=== PATIENT | female | born 1970 | race Caucasian/White ===

== ENCOUNTER 2019-03-09 08:16 | Inpatient (IN) | payer OTHER ==
[2019-03-09 08:42] VITALS: BMI 26.5
--- NOTE | 2019-03-09 09:30 | HP ---
COWS - Scale Resting Pulse: 1= [place] 81-100 Sweatin= Chills/Flushing Restless Observation: 1= Difficult to Sit Still Pupil Size: 0= Normal to Room Light Bone or Joint Aches: 1= Mild Discomfort Runny Nose/ Eye Tearin= Runny Nose/Eyes GI Upset > 30mins: 2= Nausea/Diarrhea Tremor Observation: 2= Slight Tremor Visible Yawning Observation: 1= 1-2x During Session Anxiety or Irritability: 2=Irritable/Anxious Goose Flesh Skin: 0=Smooth Skin COWS Score: 13 Admission ROS S - HPI Chief Complaint: I want to detox, I want to change my life. Allergies/Adverse Reactions: Allergies Allergy/AdvReac Type Severity Reaction Status Date / Time codeine Allergy Severe Hives Verified 03/09/19 08:28 History of Present Illness: 48 yo woman here for detox from opiates. Patient reports black outs but no overdose. States she just started using opiates when she met a man who was using a few years ago - he later overdosed. She has been in detox, methadone program at [facility] (80mg, from 2015-Oct 2018). She got off the methadone because she did not like going every day. She relapsed shortly after getting off methadone. Was in detox in [place] a few months ago. She does not drink alcohol. She is interested in [employer]. Noted urine tox + alprazolam (just took once) and methadone (just took once to help her withdrawal symptoms) and cocaine (just took once) - she states these are not done regularly. Exam Limitations: Clinical Condition - Ebola screening Have you traveled outside of the country in the last 21 days: No (N) Have you had contact with anyone from an Ebola affected area: No Do you have a fever: No - Review of Systems Constitutional: Loss of Appetite, Night Sweats, Changes in sleep EENT: reports: Nose Congestion Respiratory: reports: No Symptoms reported Cardiac: reports: No Symptoms Reported GI: reports: Nausea, Poor Appetite, Abdominal cramping : reports: Dysuria Musculoskeletal: reports: Back Pain, Muscle Pain Integumentary: reports: No Symptoms Reported Neuro: reports: Headache, Tremors Endocrine: reports: No Symptoms Reported Hematology: reports: No Symptoms Reported Psychiatric: reports: Mood/Affect Appropiate, Anxious Other Systems: Reviewed and Negative Patient History - Patient Medical History Hx Anemia: No Hx Asthma: No Hx Chronic Obstructive Pulmonary Disease (COPD): No Hx Cancer: No Hx Cardiac Disorders: No Hx Hypertension: Yes Hx Hypercholesterolemia: No Hx Pacemaker: No Hx Seizures: No Hx Diabetes: No Hx Gastrointestinal Disorders: Yes (constipation - ) Hx Liver Disease: No Hx Genitourinary Disorders: No Hx Sexually Transmitted Disorders: No Hx Renal Disease (ESRD): No Hx Thyroid Disease: Yes (hypothyroid) Hx Human Immunodeficiency Virus (HIV): No Hx Hepatitis C: No Hx Depression: Yes (hospitalized January 2018, on meds) Hx Suicide Attempt: No Hx Bipolar Disorder: Yes Hx Schizophrenia: No - Patient Surgical History Past Surgical History: No - PPD History Previous Implant?: Yes Documented Results: Negative w/proof (done in [facility]) Implanted On Prior R Admission?: No PPD to be Administered?: Yes - Reproductive History Patient is a Female of Child Bearing Age (11 -55 yrs old): Yes - Smoking Cessation Smoking history: Former smoker Have you smoked in the past 12 months: No Aproximately how many cigarettes per day: 0 Initiated information on smoking cessation: No - Substance & Tx. History Hx Alcohol Use: No Hx Substance Use: Yes Substance Use Type: Cocaine, Heroin, Opiates Hx Substance Use Treatment: Yes (detox, MMTP, 12 step meetings) - Substances abused Heroin Substance route: Inhalation Frequency: Daily Amount used: 4 bags Age of first use: 46 Date of last use: 03/08/19 Non-Rx Methadone Substance route: Oral Frequency: 1-3 times last 30 days Amount used: 5mg Age of first use: 48 Date of last use: 03/06/19 Alprazolam (Xanax) Substance route: Oral Frequency: 1-3 times last 30 days Amount used: 1mg Age of first use: 48 Date of last use: 03/06/19 Cocaine Substance route: Inhalation Frequency: 1-3 times last 30 days Amount used: $10 Age of first use: 20 Date of last use: 03/06/19 Family Disease History - Family Disease History Family Disease History: CA: Mother (living - colon cancer), Other: Father ( , cirrhosis,hx etoh), Mother, Brother (one living - no contact), Sister (three living - healthy), Daughter (one age 29 - in [place], healthy) Admission Physical Exam [facility] - Vital Signs Vital Signs: Vital Signs - 24 hr 03/09/19 08:33 Temperature 98.0 F Pulse Rate 81 Respiratory 20 Rate Blood Pressure 110/75 - Physical General Appearance: Yes: Nourished, Appropriately Dressed, Moderate Distress, Anxious HEENTM: Yes: EOMI, Hearing grossly Normal, Normocephalic, Normal Voice, Pharynx Normal, Nasal Congestion Respiratory: Yes: Normal Breath Sounds, No Respiratory Distress Neck: Yes: No masses,lesions,Nodules Breast: Yes: Breast Exam Deferred Cardiology: Yes: Regular Rhythm, Regular Rate Abdominal: Yes: Soft Genitourinary: Yes: Hesitency, Dysuria Back: Yes: Normal Inspection Musculoskeletal: Yes: full range of Motion, Gait Steady, Back pain, Muscle Pain Extremities: Yes: Normal Inspection, Normal Range of Motion Neurological: Yes: Fully Oriented, Alert, Motor Strength 5/5, Normal Mood/Affect , Normal Response Integumentary: Yes: Normal Color, Warm Lymphatic: Yes: Within Normal Limits - Diagnostic (1) Opioid dependence with withdrawal Current Visit: Yes Status: Chronic (2) HTN (hypertension) Current Visit: Yes Status: Chronic Qualifiers: Hypertension type: essential hypertension Qualified Code(s): I10 - Essential (primary) hypertension (3) Hypothyroid Current Visit: Yes Status: Chronic Qualifiers: Hypothyroidism type: acquired Qualified Code(s): E03.9 - Hypothyroidism, unspecified Cleared for Admission [facility] - Detox or Rehab [facility] Level of Care: Medically Managed Detox Regimen/Protocol: Methadone Breathalyzer - Breathalyzer Breathalyzer: 0 Urine Drug Screen - Test Device Lot number: [id number] Expiration date: 01/01/21 - Control Is test valid?: Yes - Results Drug screen NEGATIVE: No Urine drug screen results: JAZMIN-Cocaine, FEN-Fentanyl, MOP-Opiates, OXY-Oxycodone , MTD-Methadone, BZO-Benzodiazepines Inpatient Rehab Admission - Rehab Decision to Admit Inpatient rehab admission?: No
[2019-03-09] MEDS ORDERED: MAG HYDROX/AL HYDROX/SIMETH 30 ML UNIT-DOSE CUP PO PRN (09:47)
[2019-03-09] MEDS ORDERED: BISMUTH SUBSALICYLATE 524 MG/30 ML UD PO PRN (09:47)
[2019-03-09] MEDS ORDERED: MENTHOL/PHENOL 1 EACH UD MM PRN (09:47)
[2019-03-09] MEDS ORDERED: cloNIDine HCL 0.1 MG TABLET PO PRN (09:47)
[2019-03-09] MEDS ORDERED: ACETAMINOPHEN 325 MG TABLET (FP) PO PRN (09:47)
[2019-03-09] MEDS ORDERED: IBUPROFEN 400 MG TABLET (FP) PO PRN (09:47)
[2019-03-09] MEDS ORDERED: MAGNESIUM HYDROX 2400MG/30ML ORAL SUSPENSION 30 ML CUP PO PRN (09:47)
[2019-03-09] MEDS ORDERED: MAGNESIUM CITRATE 300 ML BOTTLE PO PRN (09:47)
[2019-03-09] MEDS ORDERED: METHADONE HCL 10 MG TABLET (FOR DETOX USE ONLY) PO ONE (11:00)
[2019-03-09] MEDS: ESCITALOPRAM OXALATE 20 MG TABLET (FP) PO SCH (11:36)
[2019-03-09] MEDS: amLODIPine BESYLATE 5 MG TABLET (FP) PO SCH (11:36)
[2019-03-09] MEDS: LEVOTHYROXINE NA 25 MCG TABLET (FP) PO SCH (11:37)
[2019-03-09] MEDS: PRENATAL VITAMINS W/ FOLIC ACID TABLET (FP) PO SCH (11:37)
[2019-03-09 12:39] LABS: HEMATOCRIT 35.6 % (32.4-45.2); HEMOGLOBIN 11.5 GM/dL (10.7-15.3); MCH 27.1 pg (25.7-33.7); MCHC 32.3 g/dl (32.0-36.0); MEAN CELL VOLUME 83.9 fl (80-96); MEAN PLT VOLUME 9.2 fl (7.5-11.1); RBC 4.24 M/mm3 (3.60-5.2); RDW 18.3 % (11.6-15.6); WHITE BLOOD COUNT 5.3 K/mm3 (4.0-10.0)
[2019-03-09] MEDS: guaiFENesin 200 MG/10 ML 10 ML UNIT-DOSE CUPS PO PRN (12:52)
[2019-03-09 12:53] LABS: ALBUMIN 3.6 g/dl (3.4-5.0); BILIRUBIN,TOTAL 0.2 mg/dL (0.2-1); BLOOD UREA NITROGEN 11.4 mg/dL (7-18); CALCIUM 8.4 mg/dL (8.5-10.1); CREATININE 0.8 mg/dL (0.55-1.3); POTASSIUM 3.4 mmol/L (3.5-5.1)
[2019-03-09 12:56] LABS: PLATELET COUNT 255 K/MM3 (134-434)
[2019-03-09] MEDS: THIAMINE HCL 100 MG TABLET (FP) PO SCH (22:34)
[2019-03-09] MEDS: traZODone HCL 100 MG TABLET (FP) PO PRN (22:34)
[2019-03-10] MEDS ORDERED: METHADONE HCL 10 MG TABLET (FOR DETOX USE ONLY) ONE (09:35)
[2019-03-10] MEDS ORDERED: METHADONE HCL 5 MG TABLET (FOR DETOX USE ONLY) ONE (09:36)
[2019-03-10] MEDS ORDERED: METHADONE (DETOX) 20 MG, METHADONE (DETOX) 5 MG PO ONE (10:00)
[2019-03-10] MEDS: amLODIPine BESYLATE 5 MG TABLET (FP) PO SCH (10:07)
[2019-03-10] MEDS: ESCITALOPRAM OXALATE 20 MG TABLET (FP) PO SCH (10:07)
[2019-03-10] MEDS: PRENATAL VITAMINS W/ FOLIC ACID TABLET (FP) PO SCH (10:07)
[2019-03-10] MEDS: LEVOTHYROXINE NA 25 MCG TABLET (FP) PO SCH (10:08)
[2019-03-10] MEDS: guaiFENesin 200 MG/10 ML 10 ML UNIT-DOSE CUPS PO PRN (10:09)
--- NOTE | 2019-03-10 11:20 | CONSULT ---
[facility] Psychiatric Consult - Data Date of interview: 03/10/19 Admission source: [facility] Identifying data: Patient is a 48 year old single female, mother of one, domiciled, and currently employed. This is patient's first admission to detox at [facility]. Patient admitted to for opiate dependence. Substance Abuse History: Smoking Cessation. Smoking history: Former smoker. Have you smoked in the past 12 months: No. Aproximately how many cigarettes per day: 0. Initiated information on smoking cessation: No. - Substance & Tx. History. Hx Alcohol Use: No. Hx Substance Use: Yes. Substance Use Type: Cocaine, Heroin, Opiates. Hx Substance Use Treatment: Yes (detox, MMTP, 12 step meetings). - Substances abused. Heroin. Substance route: Inhalation. Frequency: Daily. Amount used: 4 bags. Age of first use: 46. Date of last use: 03/08/19. Non-Rx Methadone. Substance route: Oral. Frequency: 1-3 times last 30 days. Amount used: 5mg. Age of first use: 48. Date of last use : 03/06/19. Alprazolam (Xanax). Substance route: Oral. Frequency: 1-3 times last 30 days. Amount used: 1mg. Age of first use: 48. Date of last use : 03/06/19. Cocaine. Substance route: Inhalation. Frequency: 1-3 times last 30 days. Amount used: $10. Age of first use: 20. Date of last use: 03/06 Medical History: hypothyroid Psychiatric History: Patient's first psychiatric contact was in 2018 at [facility]. She reports h/o depression secondary to issues within her family. Patient slighly irritable while speaking to typewriter aligner and may be minimizing psychiatric history. Reports being prescribed lexapro 20mg daily. She denies h/o psychiatric hospitalizations and suicide attempt. Physical/Sexual Abuse/Trauma History: denies. Mental Status Exam - Mental Status Exam Alert and Oriented to: Time, Place, Person Cognitive Function: Good Patient Appearance: Well Groomed Mood: Withdrawn, Irritable (slightly irritable) Affect: Mood Congruent Patient Behavior: Cooperative Speech Pattern: Clear Voice Loudness: Normal Thought Process: Goal Oriented Thought Disorder: Not Present Hallucinations: Denies Suicidal Ideation: Denies Homicidal Ideation: Denies Insight/Judgement: Poor Sleep: Fair Appetite: Fair Muscle strength/Tone: Normal Gait/Station: Normal Psychiatric Findings - Problem List ([place] 1, 2,3) (1) Cocaine dependence Status: Chronic Qualifiers: Substance use status: uncomplicated Qualified Code(s): F14.20 - Cocaine dependence, uncomplicated (2) Opioid dependence with withdrawal Status: Chronic (3) Substance induced mood disorder Status: Acute - Initial Treatment Plan Initial Treatment Plan: Psychoeducation provided. Detoxification in progress. Will continue lexapro 20mg + trazodone 100mg HS prn for insomnia. Benefits and side effects discussed. Verbal consent given.
[2019-03-10] MEDS: clonazePAM 0.5 MG TABLET PO PRN ×2 (11:23→18:33)
--- NOTE | 2019-03-10 14:00 | EKG ---
Test Reason : Blood Pressure : / mmHG Vent. Rate : 068 BPM Atrial Rate : 068 BPM P-R Int : 150 ms QRS Dur : 088 ms QT Int : 430 ms P-R-T Axes : 048 029 028 degrees QTc Int : 457 ms NORMAL SINUS RHYTHM NORMAL ECG WHEN COMPARED WITH ECG OF 23-DEC-2011 20:48, NONSPECIFIC T WAVE ABNORMALITY NO LONGER EVIDENT IN ANTERIOR LEADS Confirmed by MD ZEFERINO, SMITHA ([id number]) on 03/10/2019 2:00:11 PM Referred By: GALE MIMS Confirmed By:SMITHA MCGARRY MD
[2019-03-10] MEDS: guaiFENesin 600 MG TABLET.ER (FP) PO SCH ×2 (14:15→22:44)
--- NOTE | 2019-03-10 16:29 | PN ---
BHS COWS - Scale Resting Pulse: 0= [place] 80 or Below Sweatin= Chills/Flushing Restless Observation: 1= Difficult to Sit Still Pupil Size: 0= Normal to Room Light Bone or Joint Aches: 0= None Runny Nose/ Eye Tearin= None GI Upset > 30mins: 2= Nausea/Diarrhea Tremor Observation of Outstretched Hands: 2= Slight Tremor Visible Yawning Observation: 1= 1-2x During Session Anxiety or Irritability: 2=Irritable/Anxious Goose Flesh Skin: 3=Piloerection COWS Score: 12 BHS Progress Note (SOAP) Subjective: Chills, Nausea, Tremors, Anxious. Objective: PATIENT A & O X 3, OBSERVED AMBULATING ON UNIT UNASSISTED. IN NO ACUTE DISTRESS. 03/10/19 16:30 Vital Signs Temperature 98.1 F 03/10/19 13:22 Pulse Rate 64 03/10/19 13:22 Respiratory Rate 18 03/10/19 13:22 Blood Pressure 98/57 L 03/10/19 13:22 O2 Sat by Pulse Oximetry (%) Laboratory Tests 03/09/19 03/09/19 03/09/19 09:21 09:50 09:50 WBC 5.3 RBC 4.24 Hgb 11.5 Hct 35.6 MCV 83.9 MCH 27.1 MCHC 32.3 RDW 18.3 H Plt Count 255 MPV 9.2 Sodium 140 Potassium 3.4 L Chloride 106 Carbon Dioxide 31 Anion Gap 4 L BUN 11.4 Creatinine 0.8 Est GFR (CKD-EPI)AfAm 99.63 Est GFR (CKD-EPI)NonAf 85.96 Random Glucose 132 H Calcium 8.4 L Total Bilirubin 0.2 AST 19 ALT 26 Alkaline Phosphatase 110 Total Protein 7.0 Albumin 3.6 POC Urine HCG, Qual Negative RPR Titer 03/09/19 09:50 WBC RBC Hgb Hct MCV MCH MCHC RDW Plt Count MPV Sodium Potassium Chloride Carbon Dioxide Anion Gap BUN Creatinine Est GFR (CKD-EPI)AfAm Est GFR (CKD-EPI)NonAf Random Glucose Calcium Total Bilirubin AST ALT Alkaline Phosphatase Total Protein Albumin POC Urine HCG, Qual RPR Titer Nonreactive LABS NOTED. RESULT OF TB / QFT TEST PENDING. 03/10/19 16:32 Assessment: 03/10/19 16:32 WITHDRAWAL SYMPTOMS. HYPOKALEMIA. HYPERGLYCEMIA. Plan: CONTINUE DETOX. K-DUR, 20 MEQ PO BID FOR LOW ADMISSION K LEVEL. RE-CHECK K LEVEL ON 03/12/2019. BGM ACBK FOR ELEVATED ADMISSION RANDOM GLUCOSE LEVEL (NO HISTORY OF DM REPORTED BY PATIENT ON DETOX ADMISSION HISTORY AND PHYSICAL ASSESSMENT.
[2019-03-10] MEDS: POTASSIUM CHLORIDE TABS 20 MEQ TABLET.ER (FP) PO SCH (18:32)
[2019-03-10] MEDS: SODIUM CHLORIDE NASAL SPRAY 44 ML BOTTLE NS PRN (18:41)
[2019-03-10] MEDS: THIAMINE HCL 100 MG TABLET (FP) PO SCH (22:43)
[2019-03-11] MEDS ORDERED: METHADONE HCL 10 MG TABLET (FOR DETOX USE ONLY) PO ONE (10:00)
--- NOTE | 2019-03-11 10:03 | PN ---
BHS COWS - Scale Resting Pulse: 0= [place] 80 or Below Sweatin= Chills/Flushing Restless Observation: 1= Difficult to Sit Still Pupil Size: 0= Normal to Room Light Bone or Joint Aches: 2= Severe Diffuse Aches Runny Nose/ Eye Tearin= Nasal Congestion GI Upset > 30mins: 0= None Tremor Observation of Outstretched Hands: 1= Tremor [place], Not Seen Yawning Observation: 1= 1-2x During Session Anxiety or Irritability: 2=Irritable/Anxious Goose Flesh Skin: 0=Smooth Skin COWS Score: 9 BHS Progress Note (SOAP) Subjective: agitation anxiety sweats interrupted sleep body aches Objective: 03/11/19 10:03 Vital Signs Temperature 97.9 F 03/11/19 09:32 Pulse Rate 75 03/11/19 09:32 Respiratory Rate 18 03/11/19 09:32 Blood Pressure 105/76 03/11/19 09:32 O2 Sat by Pulse Oximetry (%) Laboratory Tests 03/09/19 03/09/19 03/09/19 09:21 09:50 09:50 WBC 5.3 RBC 4.24 Hgb 11.5 Hct 35.6 MCV 83.9 MCH 27.1 MCHC 32.3 RDW 18.3 H Plt Count 255 MPV 9.2 Sodium 140 Potassium 3.4 L Chloride 106 Carbon Dioxide 31 Anion Gap 4 L BUN 11.4 Creatinine 0.8 Est GFR (CKD-EPI)AfAm 99.63 Est GFR (CKD-EPI)NonAf 85.96 POC Glucometer Random Glucose 132 H Calcium 8.4 L Total Bilirubin 0.2 AST 19 ALT 26 Alkaline Phosphatase 110 Total Protein 7.0 Albumin 3.6 POC Urine HCG, Qual Negative RPR Titer 03/09/19 03/11/19 09:50 05:57 WBC RBC Hgb Hct MCV MCH MCHC RDW Plt Count MPV Sodium Potassium Chloride Carbon Dioxide Anion Gap BUN Creatinine Est GFR (CKD-EPI)AfAm Est GFR (CKD-EPI)NonAf POC Glucometer 109 Random Glucose Calcium Total Bilirubin AST ALT Alkaline Phosphatase Total Protein Albumin POC Urine HCG, Qual RPR Titer Nonreactive labs noted aaox3 ambulating no acute distress Assessment: 03/11/19 11:42 withdrawal sx Plan: continue detox increase fluids
[2019-03-11] MEDS: amLODIPine BESYLATE 5 MG TABLET (FP) PO SCH (10:07)
[2019-03-11] MEDS: LEVOTHYROXINE NA 25 MCG TABLET (FP) PO SCH (10:07)
[2019-03-11] MEDS: POTASSIUM CHLORIDE TABS 20 MEQ TABLET.ER (FP) PO SCH ×2 (10:07→17:38)
[2019-03-11] MEDS: ESCITALOPRAM OXALATE 20 MG TABLET (FP) PO SCH (10:07)
[2019-03-11] MEDS: PRENATAL VITAMINS W/ FOLIC ACID TABLET (FP) PO SCH (10:07)
[2019-03-11] MEDS: guaiFENesin 600 MG TABLET.ER (FP) PO SCH ×2 (10:07→21:57)
[2019-03-11] MEDS: clonazePAM 0.5 MG TABLET PO PRN ×3 (10:07→23:41)
[2019-03-11] MEDS: METHOCARBAMOL 500 MG TABLET PO PRN (10:07)
[2019-03-11] MEDS: SODIUM CHLORIDE NASAL SPRAY 44 ML BOTTLE NS PRN ×2 (17:38→22:01)
[2019-03-11] MEDS: THIAMINE HCL 100 MG TABLET (FP) PO SCH (21:58)
[2019-03-11] MEDS: traZODone HCL 100 MG TABLET (FP) PO PRN (21:59)
[2019-03-12] MEDS: clonazePAM 0.5 MG TABLET PO PRN ×3 (06:15→19:18)
[2019-03-12] MEDS: SODIUM CHLORIDE NASAL SPRAY 44 ML BOTTLE NS PRN ×2 (06:17→18:06)
[2019-03-12] MEDS ORDERED: METHADONE HCL 10 MG TABLET (FOR DETOX USE ONLY) ONE (09:14)
[2019-03-12] MEDS ORDERED: METHADONE HCL 5 MG TABLET (FOR DETOX USE ONLY) ONE (09:14)
[2019-03-12] MEDS ORDERED: METHADONE (DETOX) 10 MG, METHADONE (DETOX) 5 MG PO ONE (10:00)
[2019-03-12] MEDS: PRENATAL VITAMINS W/ FOLIC ACID TABLET (FP) PO SCH (10:21)
[2019-03-12] MEDS: ESCITALOPRAM OXALATE 20 MG TABLET (FP) PO SCH (10:21)
[2019-03-12] MEDS: LEVOTHYROXINE NA 25 MCG TABLET (FP) PO SCH (10:21)
[2019-03-12] MEDS: guaiFENesin 600 MG TABLET.ER (FP) PO SCH ×2 (10:21→22:08)
[2019-03-12] MEDS: amLODIPine BESYLATE 5 MG TABLET (FP) PO SCH (10:21)
[2019-03-12] MEDS: POTASSIUM CHLORIDE TABS 20 MEQ TABLET.ER (FP) PO SCH ×2 (10:21→18:01)
--- NOTE | 2019-03-12 10:41 | PN ---
BHS COWS - Scale Resting Pulse: 0= [place] 80 or Below Sweatin= Chills/Flushing Restless Observation: 0= Sits Still Pupil Size: 0= Normal to Room Light Bone or Joint Aches: 1= Mild Discomfort Runny Nose/ Eye Tearin= None GI Upset > 30mins: 0= None Tremor Observation of Outstretched Hands: 1= Tremor [place], Not Seen Yawning Observation: 1= 1-2x During Session Anxiety or Irritability: 2=Irritable/Anxious Goose Flesh Skin: 0=Smooth Skin COWS Score: 6 BHS Progress Note (SOAP) Subjective: irritable agitation sweats Objective: 03/12/19 10:40 Vital Signs Temperature 98.3 F 03/12/19 09:40 Pulse Rate 69 03/12/19 09:40 Respiratory Rate 18 03/12/19 09:40 Blood Pressure 99/67 03/12/19 09:40 O2 Sat by Pulse Oximetry (%) Laboratory Tests 03/09/19 03/09/19 03/09/19 09:21 09:50 09:50 WBC 5.3 RBC 4.24 Hgb 11.5 Hct 35.6 MCV 83.9 MCH 27.1 MCHC 32.3 RDW 18.3 H Plt Count 255 MPV 9.2 Sodium 140 Potassium 3.4 L Chloride 106 Carbon Dioxide 31 Anion Gap 4 L BUN 11.4 Creatinine 0.8 Est GFR (CKD-EPI)AfAm 99.63 Est GFR (CKD-EPI)NonAf 85.96 POC Glucometer Random Glucose 132 H Calcium 8.4 L Total Bilirubin 0.2 AST 19 ALT 26 Alkaline Phosphatase 110 Total Protein 7.0 Albumin 3.6 POC Urine HCG, Qual Negative RPR Titer 03/09/19 03/11/19 03/12/19 09:50 05:57 06:12 WBC RBC Hgb Hct MCV MCH MCHC RDW Plt Count MPV Sodium Potassium Chloride Carbon Dioxide Anion Gap BUN Creatinine Est GFR (CKD-EPI)AfAm Est GFR (CKD-EPI)NonAf POC Glucometer 109 88 Random Glucose Calcium Total Bilirubin AST ALT Alkaline Phosphatase Total Protein Albumin POC Urine HCG, Qual RPR Titer Nonreactive repeated potassium pending aaox3 ambulating no acute distress Assessment: 03/12/19 10:40 withdrawal sx Plan: continue detox increase fluids
[2019-03-12] MEDS: THIAMINE HCL 100 MG TABLET (FP) PO SCH (22:08)
[2019-03-12] MEDS: MELATONIN 5 MG TABLETS PO PRN (22:08)
[2019-03-12] MEDS: traZODone HCL 100 MG TABLET (FP) PO PRN (22:10)
[2019-03-12] MEDS: METHOCARBAMOL 500 MG TABLET PO PRN (22:13)
[2019-03-13] MEDS: clonazePAM 0.5 MG TABLET PO PRN ×4 (05:24→23:25)
[2019-03-13] MEDS: SODIUM CHLORIDE NASAL SPRAY 44 ML BOTTLE NS PRN (05:25)
[2019-03-13] MEDS ORDERED: METHADONE HCL 10 MG TABLET (FOR DETOX USE ONLY) PO ONE (10:00)
[2019-03-13] MEDS: guaiFENesin 600 MG TABLET.ER (FP) PO SCH ×2 (10:27→22:13)
[2019-03-13] MEDS: POTASSIUM CHLORIDE TABS 20 MEQ TABLET.ER (FP) PO SCH ×2 (10:27→18:12)
[2019-03-13] MEDS: LEVOTHYROXINE NA 25 MCG TABLET (FP) PO SCH (10:27)
[2019-03-13] MEDS: ESCITALOPRAM OXALATE 20 MG TABLET (FP) PO SCH (10:27)
[2019-03-13] MEDS: PRENATAL VITAMINS W/ FOLIC ACID TABLET (FP) PO SCH (10:27)
[2019-03-13] MEDS: amLODIPine BESYLATE 5 MG TABLET (FP) PO SCH (10:29)
--- NOTE | 2019-03-13 12:03 | PN ---
BHS COWS - Scale Resting Pulse: 0= [place] 80 or Below Sweatin= Chills/Flushing Restless Observation: 1= Difficult to Sit Still Pupil Size: 0= Normal to Room Light Bone or Joint Aches: 1= Mild Discomfort Runny Nose/ Eye Tearin= None GI Upset > 30mins: 0= None Tremor Observation of Outstretched Hands: 1= Tremor [place], Not Seen Yawning Observation: 1= 1-2x During Session Anxiety or Irritability: 1=Feels Anxious/Irritable Goose Flesh Skin: 0=Smooth Skin COWS Score: 6 BHS Progress Note (SOAP) Subjective: sweats agitation Objective: 03/13/19 12:04 Vital Signs Temperature 96.9 F L 03/13/19 09:35 Pulse Rate 70 03/13/19 09:35 Respiratory Rate 18 03/13/19 09:35 Blood Pressure 101/51 L 03/13/19 09:35 O2 Sat by Pulse Oximetry (%) aaox3 ambulating no acute distress Assessment: 03/13/19 12:04 mild withdrawal sx Plan: continue detox increase fluids d/c in am
[2019-03-13] MEDS: THIAMINE HCL 100 MG TABLET (FP) PO SCH (22:13)
[2019-03-13] MEDS: MELATONIN 5 MG TABLETS PO PRN (22:14)
[2019-03-14] MEDS ORDERED: METHADONE HCL 5 MG TABLET (FOR DETOX USE ONLY) PO ONE (06:00)
[2019-03-14] MEDS: guaiFENesin 600 MG TABLET.ER (FP) PO SCH (09:22)
[2019-03-14] MEDS: POTASSIUM CHLORIDE TABS 20 MEQ TABLET.ER (FP) PO SCH (09:22)
[2019-03-14] MEDS: ESCITALOPRAM OXALATE 20 MG TABLET (FP) PO SCH (09:23)
[2019-03-14] MEDS: PRENATAL VITAMINS W/ FOLIC ACID TABLET (FP) PO SCH (09:23)
[2019-03-14] MEDS: amLODIPine BESYLATE 5 MG TABLET (FP) PO SCH (09:23)
[2019-03-14] MEDS: LEVOTHYROXINE NA 25 MCG TABLET (FP) PO SCH (09:24)
--- NOTE | 2019-03-14 09:36 | DS ---
[facility] Detox Discharge Summary Admission Date: 03/09/19 Discharge Date: 03/14/19 - History Present History: Cannabis Dependence, Opioid Dependence - Physical Exam Results Vital Signs: Vital Signs Temperature 97.5 F L 03/14/19 06:40 Pulse Rate 573 H 03/14/19 06:40 Respiratory Rate 18 03/14/19 06:40 Blood Pressure 98/60 03/14/19 06:40 O2 Sat by Pulse Oximetry (%) pt is aaox3 no distress, no s/s of withdrawal sx - Treatment Hospital Course: Detox Protocol Followed, Detoxed Safely, Responded well, Discharged Condition Good, Rehab Referral Accepted - Medication Discharge Medications: Ambulatory Orders Amlodipine Besylate [Norvasc -] 5 mg PO DAILY 03/09/19 Escitalopram Oxalate [Lexapro -] 20 mg PO DAILY 03/09/19 Levothyroxine [Synthroid -] 25 mcg PO ASDIR 03/09/19 - Diagnosis (1) Cocaine dependence Current Visit: Yes Status: Chronic Qualifiers: Substance use status: uncomplicated Qualified Code(s): F14.20 - Cocaine dependence, uncomplicated (2) Hyperglycemia Current Visit: Yes Status: Acute (3) Hypokalemia Current Visit: Yes Status: Acute (4) Opioid dependence with withdrawal Current Visit: Yes Status: Chronic (5) Substance induced mood disorder Current Visit: Yes Status: Acute (6) HTN (hypertension) Current Visit: Yes Status: Chronic Qualifiers: Hypertension type: essential hypertension Qualified Code(s): I10 - Essential (primary) hypertension (7) Hypothyroid Current Visit: Yes Status: Chronic Qualifiers: Hypothyroidism type: acquired Qualified Code(s): E03.9 - Hypothyroidism, unspecified - AMA Did Patient Leave Against Medical Advice: No (pt declined rehab;referred to positive direction OTP)
[2019-03-14 09:49] VITALS: BP 105/66; PULSE 63; TEMP 96.4
== END 2019-03-14 10:58 | disposition home or self-care (01) | DRG 773 ==
LOC: YASAS 08:16 → Y6N 10:16 → UNDODISIN 03-12 15:06
PROVIDERS: ADMIT Surgery; ATTEND Surgery
PROC: HZ2ZZZZ Detoxification Services for Substance Abuse Treatment (ICD-10-PCS; principal; 2019-03-09)
DX: F11.23 Opioid dependence with withdrawal (principal); F14.20 Cocaine dependence, uncomplicated; F31.9 Bipolar disorder, unspecified; F32.9 Major depressive disorder, single episode, unspecified; E87.6 Hypokalemia; I10 Essential (primary) hypertension; E03.9 Hypothyroidism, unspecified; Z87.891 Personal history of nicotine dependence
CPT/HCPCS: 36415; 80053; 81025; 82962; 84132; 85027; 86480; 86593; 93005; 93010

== ENCOUNTER 2019-04-26 14:04 | Inpatient (IN) | payer OTHER ==
[2019-04-26 16:25] VITALS: BMI 26.5
--- NOTE | 2019-04-26 18:17 | HP ---
COWS - Scale Resting Pulse: 2= [place] 101-120 Sweatin= Chills/Flushing Restless Observation: 1= Difficult to Sit Still Pupil Size: 1= Pupils >than Normal Bone or Joint Aches: 4=Acute Joint/Muscle Pain Runny Nose/ Eye Tearin= Runny Nose/Eyes GI Upset > 30mins: 3= Vomiting/Diarrhea Tremor Observation: 2= Slight Tremor Visible Yawning Observation: 1= 1-2x During Session Anxiety or Irritability: 2=Irritable/Anxious Goose Flesh Skin: 0=Smooth Skin COWS Score: 19 CIWA Score - Admission Criteria [facility]ASAS Guidelines: Admission for Medically Managed Detox: Requires at least one of the followin. CIWA greater than 12 2. Seizures within the past 24 hours 3. Delirium tremens within the past 24 hours 4. Hallucinations within the past 24 hours 5. Acute intervention needed for co occurring medical disorder 6. Acute intervention needed for co occurring psychiatric disorder 7. Severe withdrawal that cannot be handled at a lower level of care (continued vomiting, continued diarrhea, abnormal vital signs) requiring intravenous medication and/or fluids 8. Admission ROS [facility] Chief Complaint: Heroin withdrawal symptoms Allergies/Adverse Reactions: Allergies Allergy/AdvReac Type Severity Reaction Status Date / Time codeine Allergy Severe Hives Verified 04/15/19 19:46 shrimp Allergy Intermediate Hives Uncoded 04/15/19 19:47 History of Present Illness: 48 years old female with 5 years of heroin dependence is seeking [id number] to detox. Patient has been to previous detox and reports insignificant period of sobriety. She reports history of hypertension, hypothyroid, depression and anxiety. She denies suicidal ideation at this time Exam Limitations: No Limitations - Ebola screening Have you traveled outside of the country in the last 21 days: No (N) Have you had contact with anyone from an Ebola affected area: No Do you have a fever: No - Review of Systems Constitutional: Chills, Loss of Appetite, Night Sweats, Changes in sleep EENT: reports: Tearing, Nose Congestion Respiratory: reports: No Symptoms reported Cardiac: reports: No Symptoms Reported GI: reports: Nausea, Poor Appetite, Poor Fluid Intake, Vomiting, Abdominal cramping : reports: No Symptoms Reported Musculoskeletal: reports: Back Pain, Muscle Pain, Muscle Weakness Integumentary: reports: Dryness, Flushing Neuro: reports: Tremors Endocrine: reports: No Symptoms Reported Hematology: reports: No Symptoms Reported Psychiatric: reports: No Sypmtoms Reported, Anxious, Depressed Other Systems: Reviewed and Negative Patient History - Patient Medical History Hx Anemia: No Hx Asthma: No Hx Chronic Obstructive Pulmonary Disease (COPD): No Hx Cancer: No Hx Cardiac Disorders: No Hx Hypertension: Yes (Amlodipine) Hx Hypercholesterolemia: No Hx Pacemaker: No Hx Seizures: No Hx Diabetes: No Hx Gastrointestinal Disorders: No Hx Liver Disease: No Hx Genitourinary Disorders: No Hx Sexually Transmitted Disorders: No Hx Renal Disease (ESRD): No Hx Thyroid Disease: Yes (Hypothyroid - [id number]) Hx Human Immunodeficiency Virus (HIV): No Hx Hepatitis C: No Hx Depression: Yes Hx Suicide Attempt: No (suicidal ideation at this time) Hx Bipolar Disorder: Yes (Not on medication) Hx Schizophrenia: No Other Medical History: Anxiety - Lexapro - Patient Surgical History Past Surgical History: No - PPD History Previous Implant?: Yes Documented Results: Negative w/o proof PPD to be Administered?: Yes - Reproductive History Patient is a Female of Child Bearing Age (11 -55 yrs old): Yes Last Menstrual Period: 04/01/19 - Smoking Cessation Smoking history: Former smoker Have you smoked in the past 12 months: No Aproximately how many cigarettes per day: 0 Hx Chewing Tobacco Use: No Initiated information on smoking cessation: No - Substances abused Heroin Substance route: Inhalation Frequency: Daily Amount used: 4 bags Age of first use: 46 Date of last use: 04/24/19 Non-Rx Methadone Substance route: Oral Frequency: 1-3 times last 30 days Amount used: 5mg Age of first use: 48 Date of last use: 03/06/19 Alprazolam (Xanax) Substance route: Oral Frequency: 1-3 times last 30 days Amount used: 1mg Age of first use: 48 Date of last use: 04/22/19 Cocaine Substance route: Inhalation Frequency: 1-3 times last 30 days Amount used: $10 Age of first use: 20 Date of last use: 03/06/19 Family Disease History - Family Disease History Family Disease History: [place]: Mother (Stomach cancer), Other: Father (, cirrhosis,hx etoh), Mother, Brother (one living - no contact), Sister (three living - healthy), Daughter (one age 29 - in [place], healthy) Admission Physical Exam [facility] - Vital Signs Vital Signs: Vital Signs - 24 hr 04/26/19 16:19 Temperature 98.2 F Pulse Rate 110 H Respiratory 16 Rate Blood Pressure 141/102 H - Physical General Appearance: Yes: Severe Distress, Tremorous, Sweating, Anxious HEENTM: Yes: Within Normal Limits Respiratory: Yes: Normal Breath Sounds, No Respiratory Distress Neck: Yes: Supple Breast: Yes: Breast Exam Deferred Cardiology: Yes: Tachycardia Abdominal: Yes: Normal Bowel Sounds Genitourinary: Yes: Within Normal Limits Back: Yes: Normal Inspection Musculoskeletal: Yes: Back pain, Muscle Pain, Muscle weakness Extremities: Yes: Tremors Neurological: Yes: Alert, Normal Mood/Affect Integumentary: Yes: Warm Lymphatic: Yes: Within Normal Limits - Diagnostic (1) Cannabis abuse with intoxication Current Visit: Yes Status: Acute (2) Cocaine use disorder, moderate, in early remission Current Visit: Yes Status: Chronic Comment: Remission for approx 5 weeks (3) Cocaine dependence Current Visit: Yes Status: Chronic Qualifiers: Substance use status: uncomplicated Qualified Code(s): F14.20 - Cocaine dependence, uncomplicated (4) HTN (hypertension) Current Visit: Yes Status: Chronic Qualifiers: Hypertension type: essential hypertension Qualified Code(s): I10 - Essential (primary) hypertension (5) Hypothyroid Current Visit: Yes Status: Chronic Qualifiers: Hypothyroidism type: unspecified Qualified Code(s): E03.9 - Hypothyroidism , unspecified (6) Opioid dependence with withdrawal Current Visit: No Status: Chronic Cleared for Admission [facility] - Detox or Rehab [facility] Level of Care: Medically Managed Detox Regimen/Protocol: Methadone Claeared for Rehab Admission: No Breathalyzer - Breathalyzer Breathalyzer: 0 Urine Drug Screen - Test Device Lot number: [id number] Expiration date: 01/01/21 - Control Is test valid?: Yes - Results Drug screen NEGATIVE: No Urine drug screen results: FEN-Fentanyl, MOP-Opiates Inpatient Rehab Admission - Rehab Decision to Admit Inpatient rehab admission?: No
[2019-04-26] MEDS ORDERED: MAGNESIUM CITRATE 300 ML BOTTLE PO PRN (18:27)
[2019-04-26] MEDS ORDERED: BISMUTH SUBSALICYLATE 524 MG/30 ML UD PO PRN (18:27)
[2019-04-26] MEDS ORDERED: ACETAMINOPHEN 325 MG TABLET (FP) PO PRN ×2 (18:27)
[2019-04-26] MEDS ORDERED: METHOCARBAMOL 500 MG TABLET PO PRN (18:27)
[2019-04-26] MEDS ORDERED: MAGNESIUM HYDROX 2400MG/30ML ORAL SUSPENSION 30 ML CUP PO PRN (18:27)
[2019-04-26] MEDS ORDERED: MENTHOL/PHENOL 1 EACH UD MM PRN (18:27)
[2019-04-26] MEDS ORDERED: MAG HYDROX/AL HYDROX/SIMETH 30 ML UNIT-DOSE CUP PO PRN (18:27)
[2019-04-26] MEDS ORDERED: IBUPROFEN 400 MG TABLET (FP) PO PRN (18:27)
[2019-04-26] MEDS ORDERED: METHADONE HCL 10 MG TABLET (FOR DETOX USE ONLY) PO ONE (19:01)
[2019-04-26] MEDS: MELATONIN 5 MG TABLETS PO PRN (22:28)
[2019-04-26] MEDS: THIAMINE HCL 100 MG TABLET (FP) PO SCH (22:28)
[2019-04-26] MEDS: hydrOXYzine PAMOATE 25 MG CAPSULE (FP) PO PRN (22:29)
[2019-04-27] MEDS ORDERED: METHADONE HCL 10 MG TABLET (FOR DETOX USE ONLY) ONE (09:42)
[2019-04-27] MEDS ORDERED: METHADONE HCL 5 MG TABLET (FOR DETOX USE ONLY) ONE (09:42)
[2019-04-27] MEDS ORDERED: METHADONE (DETOX) 20 MG, METHADONE (DETOX) 5 MG PO ONE (10:00)
[2019-04-27] MEDS: PRENATAL VITAMINS W/ FOLIC ACID TABLET (FP) PO SCH (10:38)
[2019-04-27 10:58] LABS: HEMATOCRIT 40.4 % (32.4-45.2); HEMOGLOBIN 13.4 GM/dL (10.7-15.3); MCH 27.5 pg (25.7-33.7); MCHC 33.1 g/dl (32.0-36.0); MEAN CELL VOLUME 83.3 fl (80-96); MEAN PLT VOLUME 8.8 fl (7.5-11.1); RBC 4.85 M/mm3 (3.60-5.2); RDW 19.1 % (11.6-15.6); WHITE BLOOD COUNT 6.2 K/mm3 (4.0-10.0)
[2019-04-27 11:09] LABS: BILIRUBIN,TOTAL 0.9 mg/dL (0.2-1); BLOOD UREA NITROGEN 16.4 mg/dL (7-18); CALCIUM 9.5 mg/dL (8.5-10.1); CREATININE 0.8 mg/dL (0.55-1.3); POTASSIUM 3.6 mmol/L (3.5-5.1); TOT PROT 7.5 g/dl (6.4-8.2)
[2019-04-27 11:25] LABS: PLATELET COUNT 369 K/MM3 (134-434)
--- NOTE | 2019-04-27 12:08 | PN ---
S COWS - Scale Resting Pulse: 1= [place] 81-100 Sweatin= Beads of Sweat on Face Restless Observation: 1= Difficult to Sit Still Pupil Size: 0= Normal to Room Light Bone or Joint Aches: 2= Severe Diffuse Aches Runny Nose/ Eye Tearin= None GI Upset > 30mins: 0= None Tremor Observation of Outstretched Hands: 0= None Yawning Observation: 2= >3x During Session Anxiety or Irritability: 2=Irritable/Anxious Goose Flesh Skin: 0=Smooth Skin COWS Score: 11 S Progress Note (SOAP) Subjective: c/o interrupted sleep, anxiety/irritability, and sweats. Objective: 04/27/19 12:07 Vital Signs 04/27/19 04/27/19 06:00 10:01 Temperature 97.9 F 98.6 F Pulse Rate 63 84 Respiratory 16 18 Rate Blood Pressure 125/71 138/95 Lab Results WBC 6.2 K/mm3 (4.0-10.0) 04/27/19 08:00 RBC 4.85 M/mm3 (3.60-5.2) 04/27/19 08:00 Hgb 13.4 GM/dL (10.7-15.3) 04/27/19 08:00 Hct 40.4 % (32.4-45.2) 04/27/19 08:00 MCV 83.3 fl (80-96) 04/27/19 08:00 MCHC 33.1 g/dl (32.0-36.0) 04/27/19 08:00 RDW 19.1 % (11.6-15.6) H 04/27/19 08:00 Plt Count 369 K/MM3 (134-434) D 04/27/19 08:00 Sodium 141 mmol/L (136-145) 04/27/19 08:00 Potassium 3.6 mmol/L (3.5-5.1) 04/27/19 08:00 Chloride 106 mmol/L (98-107) 04/27/19 08:00 Carbon Dioxide 26 mmol/L (21-32) 04/27/19 08:00 Anion Gap 9 MMOL/L (8-16) 04/27/19 08:00 BUN 16.4 mg/dL (7-18) 04/27/19 08:00 Creatinine 0.8 mg/dL (0.55-1.3) 04/27/19 08:00 Random Glucose 98 mg/dL (74-106) 04/27/19 08:00 Calcium 9.5 mg/dL (8.5-10.1) 04/27/19 08:00 Labs noted. Assessment: 04/27/19 12:08 AOX3, in no acute respiratory distress. Full ROM, ambulating in the unit. Withdrawal symptoms. Plan: continue detox.
[2019-04-27] MEDS: amLODIPine BESYLATE 5 MG TABLET (FP) PO SCH (12:49)
[2019-04-27] MEDS: hydrOXYzine PAMOATE 25 MG CAPSULE (FP) PO PRN (13:31)
--- NOTE | 2019-04-27 17:26 | CONSULT ---
[facility] Psychiatric Consult - Data Date of interview: 04/27/19 Admission source: [facility] Identifying data: Readmission to [facility] for this 48 y/o female self- referred for detoxification (heroin, xanax, cocaine). Seen on . Patient is single, a mother of one, domiciled and currently employed. Substance Abuse History: Confirmed by patient in this session. Dertails in current [facility] report as follows : Smoking history: Former smoker. Have you smoked in the past 12 months: No. Aproximately how many cigarettes per day: 0. Hx Chewing Tobacco Use: No. Initiated information on smoking cessation: No. - Substances abused. Heroin. Substance route: Inhalation. Frequency: Daily. Amount used: 4 bags. Age of first use: 46. Date of last use: . Non-Rx Methadone. Substance route: Oral. Frequency: 1-3 times last 30 days. Amount used: 5mg. Age of first use: 48. Date of last use: 03/06/19. * * Alprazolam (Xanax). Substance route: Oral. Frequency: 1-3 times last 30 days. Amount used: 1mg. Age of first use: 48. Date of last use: 04/22/19. * * Cocaine. Substance route: Inhalation. Frequency: 1-3 times last 30 days. Amount used: $10. Age of first use: 20. Date of last use: 03/06/19 Medical History: Remarkable for hypothyroidism. Psychiatric History: No reported history of psychiatric hospitalizations. Patient is currently followed at the [facility] in [facility]. Diagnosed with MDD and Anxiety Disorder. Medicated with lexapro 20 mg/day + trazodone 100 mg/hs. Ms Ellison denies history of suicide attempts. Physical/Sexual Abuse/Trauma History: Patient declines to discuss this domain. Additional Comment: Urine drug screen results: FEN-Fentanyl, MOP-Opiates. Noted. Mental Status Exam - Mental Status Exam Alert and Oriented to: Time, Place, Person Cognitive Function: Good Patient Appearance: Well Groomed Mood: Nervous, Withdrawn, Anxious Affect: Mood Congruent, Constricted Patient Behavior: Fatigued, Appropriate, Cooperative Speech Pattern: Clear, Appropriate Voice Loudness: Normal Thought Process: Goal Oriented Thought Disorder: Not Present Hallucinations: Denies Suicidal Ideation: Denies Homicidal Ideation: Denies Insight/Judgement: Poor Sleep: Poorly, Difficulty falling asleep Appetite: Good Gait/Station: Normal Psychiatric Findings - Problem List ([place] 1, 2,3) (1) Opioid dependence with withdrawal Current Visit: Yes Status: Acute (2) Xanax use disorder, mild, in early remission Current Visit: Yes Status: Chronic (3) Depressive disorder Current Visit: Yes Status: Chronic (4) Anxiety disorder Current Visit: Yes Status: Chronic (5) Insomnia Current Visit: Yes Status: Chronic - Initial Treatment Plan Initial Treatment Plan: Psychoeducation. Sleep hygiene. Detoxification. Support and reassurance. Groups. AA/NA meetings. Groups. Resumed : trazodone 100 mg po hs + lexapro 20 mg po daily. Side effects/benefits discussed with the patient. Ms Ellison gave consent (verbal) to MD. Hamilton.
[2019-04-27] MEDS: cloNIDine HCL 0.1 MG TABLET PO PRN (18:52)
[2019-04-27] MEDS: traZODone HCL 50 MG TABLET (FP) PO SCH (22:39)
[2019-04-27] MEDS: THIAMINE HCL 100 MG TABLET (FP) PO SCH (22:39)
[2019-04-28] MEDS: LEVOTHYROXINE NA 25 MCG TABLET (FP) PO SCH (05:51)
[2019-04-28] MEDS ORDERED: METHADONE HCL 10 MG TABLET (FOR DETOX USE ONLY) PO ONE (10:00)
[2019-04-28] MEDS: PRENATAL VITAMINS W/ FOLIC ACID TABLET (FP) PO SCH (10:40)
[2019-04-28] MEDS: amLODIPine BESYLATE 5 MG TABLET (FP) PO SCH (10:40)
[2019-04-28] MEDS: ESCITALOPRAM OXALATE 20 MG TABLET (FP) PO SCH (10:40)
[2019-04-28] MEDS: cloNIDine HCL 0.1 MG TABLET PO PRN (10:41)
--- NOTE | 2019-04-28 17:00 | PN ---
[facility]HS COWS - Scale Resting Pulse: 0= DC 80 or Below Sweatin= Chills/Flushing Restless Observation: 3= Extraneous Movement Pupil Size: 0= Normal to Room Light Bone or Joint Aches: 2= Severe Diffuse Aches Runny Nose/ Eye Tearin= Runny Nose/Eyes GI Upset > 30mins: 2= Nausea/Diarrhea Tremor Observation of Outstretched Hands: 2= Slight Tremor Visible Yawning Observation: 0= None Anxiety or Irritability: 2=Irritable/Anxious Goose Flesh Skin: 0=Smooth Skin COWS Score: 14 BHS Progress Note (SOAP) Subjective: Chills, tremor, sweating, nausea, interrupted sleep Objective: 04/28/19 16:57 Last Vital Signs Temp Pulse Resp BP Pulse Ox 97.7 F 74 18 93/58 L 04/28/19 16:43 04/28/19 16:43 04/28/19 16:43 04/28/19 16:43 Hypotension noted (b/p 93/58) Laboratory Tests 04/27/19 04/27/19 04/27/19 08:00 08:00 08:00 WBC 6.2 RBC 4.85 Hgb 13.4 Hct 40.4 MCV 83.3 MCH 27.5 MCHC 33.1 RDW 19.1 H Plt Count 369 D MPV 8.8 Sodium 141 Potassium 3.6 Chloride 106 Carbon Dioxide 26 Anion Gap 9 BUN 16.4 Creatinine 0.8 Est GFR (CKD-EPI)AfAm 99.63 Est GFR (CKD-EPI)NonAf 85.96 Random Glucose 98 Calcium 9.5 Total Bilirubin 0.9 AST 19 ALT 22 Alkaline Phosphatase 120 H Total Protein 7.5 Albumin 4.0 RPR Titer Nonreactive Labs reviewed Assessment: 04/28/19 16:58 Withdrawal sxs Noted with hypotension Plan: Continue detox Hypotension: asymptomatic, encouraged PO water hydration, monitor b/p
[2019-04-28] MEDS: THIAMINE HCL 100 MG TABLET (FP) PO SCH (22:41)
[2019-04-28] MEDS: traZODone HCL 50 MG TABLET (FP) PO SCH (22:41)
[2019-04-29] MEDS: LEVOTHYROXINE NA 25 MCG TABLET (FP) PO SCH (05:19)
[2019-04-29] MEDS ORDERED: METHADONE HCL 5 MG TABLET (FOR DETOX USE ONLY) ONE (09:09)
[2019-04-29] MEDS ORDERED: METHADONE HCL 10 MG TABLET (FOR DETOX USE ONLY) ONE (09:09)
[2019-04-29] MEDS ORDERED: METHADONE (DETOX) 10 MG, METHADONE (DETOX) 5 MG PO ONE (10:00)
[2019-04-29] MEDS: amLODIPine BESYLATE 5 MG TABLET (FP) PO SCH (10:52)
[2019-04-29] MEDS: ESCITALOPRAM OXALATE 20 MG TABLET (FP) PO SCH (10:52)
[2019-04-29] MEDS: PRENATAL VITAMINS W/ FOLIC ACID TABLET (FP) PO SCH (10:52)
--- NOTE | 2019-04-29 11:33 | PN ---
BHS COWS - Scale Resting Pulse: 0= [place] 80 or Below Sweatin=Flushed/Facial Moisture Restless Observation: 1= Difficult to Sit Still Pupil Size: 0= Normal to Room Light Bone or Joint Aches: 2= Severe Diffuse Aches Runny Nose/ Eye Tearin= None GI Upset > 30mins: 0= None Tremor Observation of Outstretched Hands: 1= Tremor [place], Not Seen Yawning Observation: 0= None Anxiety or Irritability: 2=Irritable/Anxious Goose Flesh Skin: 0=Smooth Skin COWS Score: 8 BHS Progress Note (SOAP) Subjective: restless sweats body aches chills Objective: 04/29/19 11:32 Vital Signs Temperature 97.5 F L 04/29/19 09:37 Pulse Rate 69 04/29/19 09:37 Respiratory Rate 18 04/29/19 09:37 Blood Pressure 121/78 04/29/19 09:37 O2 Sat by Pulse Oximetry (%) Laboratory Tests 04/27/19 04/27/19 04/27/19 08:00 08:00 08:00 WBC 6.2 RBC 4.85 Hgb 13.4 Hct 40.4 MCV 83.3 MCH 27.5 MCHC 33.1 RDW 19.1 H Plt Count 369 D MPV 8.8 Sodium 141 Potassium 3.6 Chloride 106 Carbon Dioxide 26 Anion Gap 9 BUN 16.4 Creatinine 0.8 Est GFR (CKD-EPI)AfAm 99.63 Est GFR (CKD-EPI)NonAf 85.96 Random Glucose 98 Calcium 9.5 Total Bilirubin 0.9 AST 19 ALT 22 Alkaline Phosphatase 120 H Total Protein 7.5 Albumin 4.0 RPR Titer Nonreactive labs noted aaox3 ambulating no acute distress Assessment: 04/29/19 11:32 withdrawal sx Plan: continue detox increase fluids
--- NOTE | 2019-04-29 13:03 | EKG ---
Test Reason : Blood Pressure : / mmHG Vent. Rate : 088 BPM Atrial Rate : 088 BPM P-R Int : 118 ms QRS Dur : 082 ms QT Int : 400 ms P-R-T Axes : 056 061 056 degrees QTc Int : 484 ms NORMAL SINUS RHYTHM WITH SINUS ARRHYTHMIA NONSPECIFIC ST ABNORMALITY PROLONGED QT ABNORMAL ECG WHEN COMPARED WITH ECG OF 09-MAR-2019 10:22, NO SIGNIFICANT CHANGE WAS FOUND Confirmed by EMI OLIVARES MD ([id number]) on 04/29/2019 1:02:36 PM Referred By: Confirmed By:EMI OLIVARES MD
[2019-04-29] MEDS: MELATONIN 5 MG TABLETS PO PRN (21:31)
[2019-04-29] MEDS: traZODone HCL 50 MG TABLET (FP) PO SCH (21:31)
[2019-04-29] MEDS: THIAMINE HCL 100 MG TABLET (FP) PO SCH (21:31)
[2019-04-30] MEDS: LEVOTHYROXINE NA 25 MCG TABLET (FP) PO SCH (05:59)
[2019-04-30] MEDS ORDERED: METHADONE HCL 10 MG TABLET (FOR DETOX USE ONLY) PO ONE (10:00)
[2019-04-30] MEDS: amLODIPine BESYLATE 5 MG TABLET (FP) PO SCH (10:06)
[2019-04-30] MEDS: PRENATAL VITAMINS W/ FOLIC ACID TABLET (FP) PO SCH (10:06)
[2019-04-30] MEDS: ESCITALOPRAM OXALATE 20 MG TABLET (FP) PO SCH (10:06)
[2019-04-30] MEDS: diazePAM 5 MG TABLET PO PRN ×4 (10:07→22:10)
--- NOTE | 2019-04-30 12:33 | PN ---
BHS COWS - Scale Resting Pulse: 1= [place] 81-100 Sweatin= Chills/Flushing Restless Observation: 1= Difficult to Sit Still Pupil Size: 0= Normal to Room Light Bone or Joint Aches: 1= Mild Discomfort Runny Nose/ Eye Tearin= None GI Upset > 30mins: 0= None Tremor Observation of Outstretched Hands: 0= None Yawning Observation: 0= None Anxiety or Irritability: 2=Irritable/Anxious Goose Flesh Skin: 0=Smooth Skin COWS Score: 6 BHS Progress Note (SOAP) Subjective: anxiety restless interrupted sleep Objective: 04/30/19 12:32 Vital Signs Temperature 98 F 04/30/19 09:42 Pulse Rate 86 04/30/19 09:42 Respiratory Rate 18 04/30/19 09:42 Blood Pressure 146/88 04/30/19 09:42 O2 Sat by Pulse Oximetry (%) aaox3 ambulating no acute distress Assessment: 04/30/19 12:32 mild withdrawal sx Plan: continue detox increase fluids valium 10mg prn
[2019-04-30] MEDS: MELATONIN 5 MG TABLETS PO PRN (22:09)
[2019-04-30] MEDS: THIAMINE HCL 100 MG TABLET (FP) PO SCH (22:11)
[2019-04-30] MEDS: traZODone HCL 50 MG TABLET (FP) PO SCH (22:15)
[2019-05-01] MEDS: LEVOTHYROXINE NA 25 MCG TABLET (FP) PO SCH (05:42)
[2019-05-01] MEDS: diazePAM 5 MG TABLET PO PRN (05:44)
[2019-05-01] MEDS ORDERED: METHADONE HCL 5 MG TABLET (FOR DETOX USE ONLY) PO ONE (06:00)
--- NOTE | 2019-05-01 09:16 | DS ---
[facility] Detox Discharge Summary Admission Date: 04/26/19 Discharge Date: 05/01/19 - History Present History: Cannabis Dependence, Opioid Dependence, Sedative Dependence - Physical Exam Results Vital Signs: Vital Signs Temperature 97.3 F L 05/01/19 07:36 Pulse Rate 63 05/01/19 07:36 Respiratory Rate 17 05/01/19 07:36 Blood Pressure 123/62 05/01/19 07:36 O2 Sat by Pulse Oximetry (%) Pertinent Admission Physical Exam Findings: pt arrived in withdrawals Laboratory Tests 04/26/19 04/27/19 04/27/19 18:52 08:00 08:00 WBC 6.2 RBC 4.85 Hgb 13.4 Hct 40.4 MCV 83.3 MCH 27.5 MCHC 33.1 RDW 19.1 H Plt Count 369 D MPV 8.8 Sodium 141 Potassium 3.6 Chloride 106 Carbon Dioxide 26 Anion Gap 9 BUN 16.4 Creatinine 0.8 Est GFR (CKD-EPI)AfAm 99.63 Est GFR (CKD-EPI)NonAf 85.96 Random Glucose 98 Calcium 9.5 Total Bilirubin 0.9 AST 19 ALT 22 Alkaline Phosphatase 120 H Total Protein 7.5 Albumin 4.0 POC Urine HCG, Qual Negative RPR Titer 04/27/19 08:00 WBC RBC Hgb Hct MCV MCH MCHC RDW Plt Count MPV Sodium Potassium Chloride Carbon Dioxide Anion Gap BUN Creatinine Est GFR (CKD-EPI)AfAm Est GFR (CKD-EPI)NonAf Random Glucose Calcium Total Bilirubin AST ALT Alkaline Phosphatase Total Protein Albumin POC Urine HCG, Qual RPR Titer Nonreactive today pt is aaox3 ambulating no acute distress - Treatment Hospital Course: Detox Protocol Followed, Detoxed Safely, Responded well, Discharged Condition Good, Rehab Referral Accepted - Medication Discharge Medications: Ambulatory Orders Amlodipine Besylate [Norvasc -] 5 mg PO DAILY 03/09/19 Escitalopram Oxalate [Lexapro -] 20 mg PO DAILY 03/09/19 Levothyroxine [Synthroid -] 25 mcg PO ASDIR 03/09/19 - Diagnosis (1) Cannabis abuse with intoxication Current Visit: Yes Status: Chronic (2) Opioid dependence with withdrawal Current Visit: Yes Status: Chronic (3) Anxiety disorder Current Visit: Yes Status: Chronic (4) Cocaine use disorder, moderate, in early remission Current Visit: Yes Status: Chronic (5) Depressive disorder Current Visit: Yes Status: Chronic (6) HTN (hypertension) Current Visit: Yes Status: Chronic Qualifiers: Hypertension type: essential hypertension Qualified Code(s): I10 - Essential (primary) hypertension (7) Insomnia Current Visit: Yes Status: Chronic (8) Substance induced mood disorder Current Visit: Yes Status: Chronic - AMA Did Patient Leave Against Medical Advice: No
[2019-05-01] MEDS: PRENATAL VITAMINS W/ FOLIC ACID TABLET (FP) PO SCH (09:22)
[2019-05-01] MEDS: amLODIPine BESYLATE 5 MG TABLET (FP) PO SCH (09:22)
[2019-05-01] MEDS: ESCITALOPRAM OXALATE 20 MG TABLET (FP) PO SCH (09:22)
[2019-05-01 09:35] VITALS: BP 127/95; PULSE 80; TEMP 96.4
== END 2019-05-01 09:23 | disposition home or self-care (01) | DRG 773 ==
LOC: YASAS 14:04 → Y6N 18:16
PROVIDERS: ADMIT Surgery; ATTEND Surgery
PROC: HZ2ZZZZ Detoxification Services for Substance Abuse Treatment (ICD-10-PCS; principal; 2019-04-26)
DX: F11.23 Opioid dependence with withdrawal (principal); F12.20 Cannabis dependence, uncomplicated; F14.21 Cocaine dependence, in remission; F41.9 Anxiety disorder, unspecified; F32.9 Major depressive disorder, single episode, unspecified; F19.24 Other psychoactive substance dependence with psychoactive substance-induced mood disorder; I10 Essential (primary) hypertension; G47.00 Insomnia, unspecified; I95.9 Hypotension, unspecified; E03.9 Hypothyroidism, unspecified; Z87.891 Personal history of nicotine dependence; Z91.013 Allergy to seafood; Z88.5 Allergy status to narcotic agent
CPT/HCPCS: 36415; 80053; 81025; 85027; 86480; 86593; 93005; 93010; J0735

== ENCOUNTER 2021-01-12 01:32 | Emergency (ER) | payer OTHER ==
[2021-01-12 01:55] VITALS: BP 148/95; PULSE 96; TEMP 98.2; BMI 24.7
[2021-01-12] MEDS ORDERED: SODIUM CHLORIDE 1,000 ML IV STA (03:26)
[2021-01-12] MEDS ORDERED: ACETAMINOPHEN 1000 MG/100 ML VIAL (NON FORMULARY) IVPB ONE (03:26)
[2021-01-12] MEDS ORDERED: ACETAMINOPHEN INJECTION 100 ML IVPB ONE (03:32)
[2021-01-12 03:50] LABS: BASO % 0.6 % (0-2.0); EOS % 0.2 % (0-4.5); HEMATOCRIT 44.5 % (32.4-45.2); LYMPH % 25.9 % (8-40); MCH 30.1 pg (25.7-33.7); MCHC 33.7 g/dl (32.0-36.0); MEAN CELL VOLUME 89.3 fl (80-96); MEAN PLT VOLUME 9.2 fl (7.5-11.1); MONO % 7.7 % (3.8-10.2); NEUT % 65.6 % (42.8-82.8); PLATELET COUNT 357 K/MM3 (134-434); RBC 4.99 M/mm3 (3.60-5.2); RDW 14.9 % (11.6-15.6); WHITE BLOOD COUNT 7.6 K/mm3 (4.0-10.0)
[2021-01-12 03:57] LABS: CALCIUM 9.5 mg/dL (8.5-10.1)
[2021-01-12 03:58] LABS: ALBUMIN 4.5 g/dl (3.4-5.0)
[2021-01-12 03:59] LABS: MAGNESIUM 2.2 mg/dL (1.8-2.4)
[2021-01-12 04:01] LABS: CREATININE 0.9 mg/dL (0.55-1.3)
[2021-01-12 04:02] LABS: INR 1.1 (0.83-1.09); PROTHROMBIN TIME (PATIENT) 13.5 SEC (9.7-13.0)
[2021-01-12 04:03] LABS: TOT PROT 8.3 g/dl (6.4-8.2)
[2021-01-12 04:05] LABS: ACTIVATED PTT 31.6 SECONDS (25.2-36.5)
[2021-01-12 05:10] LABS: URINE APPEARANCE CLEAR; URINE BILIRUBIN NEGATIVE (NEGATIVE); URINE COLOR YELLOW; URINE GLUCOSE (UA) NEGATIVE (NEGATIVE); URINE KETONE TRACE (NEGATIVE); URINE LEUK ESTERASE NEGATIVE (NEGATIVE); URINE NITRITE NEGATIVE (NEGATIVE); URINE PROTEIN NEGATIVE (NEGATIVE); URINE UROBILINOGEN 0.2 mg/dL (0.2-1.0)
== END 2021-01-12 05:39 | disposition home or self-care (01) ==
LOC: JER 01:32
PROC: 3E0333Z Introduction of Anti-inflammatory into Peripheral Vein, Percutaneous Approach (ICD-10-PCS; principal; 2021-01-12)
PROC: 3E0337Z Introduction of Electrolytic and Water Balance Substance into Peripheral Vein, Percutaneous Approach (ICD-10-PCS; 2021-01-12)
DX: R10.13 Epigastric pain (principal); K59.00 Constipation, unspecified
CPT/HCPCS: 36415; 71045-TC-FY; 74177-TC; 80053; 80307; 81003; 82550; 83605; 83690; 83735; 84484; 84703; 85025; 85610; 85730; 93005; 93010; 99285-25; J0131